=== PATIENT | male | born 1980 | race Caucasian/White ===

== ENCOUNTER 2016-08-30 22:00 | Emergency (ER) | payer OTHER ==
[~2016-08-30] VITALS: Ht 188 cm; Wt 129.5 kg
[2016-08-30] MEDS ORDERED: FERROUS SULFATE65 MG (22:09)
[2016-08-30] MEDS ORDERED: FLONASEALLERGY (22:09)
[2016-08-30 23:01] LABS: INFLUENZA B NEGATIVE
[2016-08-30 23:29] VITALS: BP 124/95; PULSE 97; TEMP 101
== END 2016-08-30 23:30 | disposition home or self-care (01) ==
LOC: COL.ER 22:00
PROVIDERS: Physician Assistant
DX: J11.1 Influenza due to unidentified influenza virus with other respiratory manifestations (principal)